=== PATIENT | female | born 1975 | race Caucasian/White ===

== ENCOUNTER 2016-11-09 00:46 | Outpatient (CLI) | END 2016-11-09 00:47 | disposition home or self-care (01) | LOC: AMBL 00:46 | PROVIDERS: ATTEND Emergency Medicine | DX: G40.209 Localization-related (focal) (partial) symptomatic epilepsy and epileptic syndromes with complex partial seizures, not intractable, without status epilepticus (principal); R00.0 Tachycardia, unspecified ==

== ENCOUNTER 2016-11-27 23:44 | Outpatient (CLI) | END 2016-11-27 23:45 | disposition home or self-care (01) | LOC: AMBL 23:44 | PROVIDERS: ATTEND Internal Medicine Geriatric Medicine | DX: R07.9 Chest pain, unspecified (principal); I48.91 Unspecified atrial fibrillation; M54.2 Cervicalgia; R03.1 Nonspecific low blood-pressure reading ==